=== PATIENT | male | born 1975 | race Caucasian/White ===

== ENCOUNTER 2016-05-30 11:06 | Emergency (ER) | payer BC ==
[2016-05-30 13:43] VITALS: BP 137/89
--- NOTE | 2016-05-30 14:17 | UC ---
Eye Complaint HPI - HPI Summary HPI Summary: patient has had sinus issues for the past week, now he woke up with eye redness , swelling and drainage from the right eye, denies pain, itching in the eye is present. no fever - History of Current Complaint Chief Complaint: UCEye Stated Complaint: EYE COMPLAINT,SINUS Time Seen by Provider: 05/30/16 14:04 Hx Obtained From: Patient Onset/Duration: Sudden Onset, Lasting Days Timing: Constant Severity Initially: Mild Severity Currently: Moderate Pain Intensity: 3 Pain Scale Used: 0-10 Numeric Location of Injury: Conjunctiva, Eye Lid (lower), Eye Lid (upper), Periorbital, Sclera Character: Foreign Body Sensation Aggravating Factor(s): Nothing Alleviating Factor(s): Nothing Associated Signs And Symptoms: Positive: Drainage (Purulent), Swelling - Risk Factors Penetrating Injury Risk Factor: Negative Globe Rupture Risk Factors: Negative Acute Glaucoma Risk Factors: Negative Optic Artery Occlusion Risk Factors: Negative - Allergies/Home Medications Allergies/Adverse Reactions: Allergies Allergy/AdvReac Type Severity Reaction Status Date / Time No Known Allergies Allergy Verified 05/30/16 13:43 PMH/Surg Hx/FS Hx/Imm Hx Previously Healthy: Yes - Surgical History Surgical History: None - Family History Known Family History: Positive: Unknown - Social History Alcohol Use: Weekly Substance Use Type: None Smoking Status (MU): Heavy Every Day Tobacco Smoker Amount Used/How Often: 1 ppd Length of Time of Smoking/Using Tobacco: started age 16 Review of Systems Constitutional: Negative Skin: Negative Eyes: Drainage, Eye Redness ENT: Nasal Discharge Respiratory: Cough Cardiovascular: Negative Gastrointestinal: Negative Genitourinary: Negative Motor: Negative Neurovascular: Negative Musculoskeletal: Negative Neurological: Negative, Headache Psychological: Negative All Other Systems Reviewed And Are Negative: Yes Physical Exam Triage Information Reviewed: Yes Appearance: Well-Nourished, Ill-Appearing, Pain Distress Vital Signs: Initial Vital Signs Temp 96.8 F 05/30/16 13:35 Pulse 91 05/30/16 13:35 Resp 16 05/30/16 13:35 BP 137/89 05/30/16 13:35 Pulse Ox 98 05/30/16 13:35 Vital Signs Reviewed: Yes Eye Exam: Normal Eyes: Positive: Conjunctiva Inflamed, Discharge, Other: - swelling of the upper and lower lid, line of swelling extending from the eye toward the ear. ENT Exam: Normal ENT: Positive: Pharyngeal erythema, Nasal congestion, Nasal drainage, TMs normal , Muffled/hoarse voice Dental Exam: Normal Neck exam: Normal Neck: Positive: Supple, Nontender, No Lymphadenopathy Respiratory Exam: Normal Respiratory: Positive: Chest non-tender, Lungs clear, Normal breath sounds Cardiovascular Exam: Normal Cardiovascular: Positive: RRR, No Murmur, Pulses Normal Abdominal Exam: Normal Abdomen Description: Positive: Nontender, No Organomegaly, Soft Bowel Sounds: Positive: Present Musculoskeletal Exam: Normal Musculoskeletal: Positive: Strength Intact, ROM Intact, No Edema Neurological Exam: Normal Neurological: Positive: Alert, Muscle Tone Normal Psychological Exam: Normal Skin: Positive: Other - swelling of eyelids, redness Eye Complaint Course/Dx - Course Course Of Treatment: history obtained, exam performed, visual acutiy performed, without difficulty. Consulted with Dr Cain, medications prescribed and recommend follow up with any increase in eye pain or pressure or swelling or fever. - Differential Dx/Diagnosis Differential Diagnosis/HQI/PQRI: Conjunctivitis, Corneal Abrasion, Penetrating Injury, Periorbital Cellulitis, Orbital Cellulitis, Retinal Artery Occlusion Provider Diagnoses: Perioribital cellulitis, right eye. conjunctivitis, right eye Discharge - Discharge Plan Condition: Stable Disposition: HOME Prescriptions: Amoxicillin/Clavulanate TAB* [Augmentin TAB 875*] 875 mg PO BID #20 tab Erythromycin OPHTH.OINT* [Ilotycin OPHTH.OINT*] 1 applic RIGHT EYE TID #1 tube Patient Education Materials: Periorbital Cellulitis in Adults (ED) Additional Instructions: take medications as prescribed, eye might benefit from cold compresses for pain relief. Follow up with any increase inpain swelling, fever or swelling.
== END 2016-05-30 14:28 | disposition home or self-care (01) ==
LOC: UCCORT 11:06
DX: L03.213 Periorbital cellulitis (principal); H10.9 Unspecified conjunctivitis; F17.200 Nicotine dependence, unspecified, uncomplicated
CPT/HCPCS: 99212; G0463